=== PATIENT | male | born 1970 ===

== ENCOUNTER 2020-11-23 09:58 | Day surgery (SDC) | payer OTHER ==
[2020-11-23] MEDS ORDERED: CEPHALEXIN500 MG PO (15:32)
== END 2020-11-23 20:35 | disposition home or self-care (01) ==
LOC: CIR.AMB 09:58
PROVIDERS: ATTEND Surgery
DX: N20.1 Calculus of ureter (principal); Z20.822 Contact with and (suspected) exposure to COVID-19